=== PATIENT | female | born 2000 | race African-American/Black ===

== ENCOUNTER 2023-05-24 13:04 | Emergency (ER) | payer OTHER ==
[~2023-05-24] VITALS: Ht 165.1 cm; Wt 91.8 kg
[2023-05-24] MEDS ORDERED: HYDR-643 PO (13:14)
[2023-05-24] MEDS ORDERED: MELA3TAB30 PO (13:14)
[2023-05-24] MEDS ORDERED: ACET325C5 PO (13:14)
[2023-05-24 13:43] LABS: BASO # 0.1 10^3/uL (0.0-0.2); BASO % 0.6 % (0.0-1.0); EOS # 0.2 10^3/uL (0.0-0.5); EOS % 2.8 % (0.0-3.0); HEMATOCRIT 36.8 % (36.0-47.0); HEMOGLOBIN 12.3 g/dl (12.0-15.5); LYMPH # 3.9 10^3/uL (1.5-5.0); MEAN CORPUSCULAR HEMOGLOBIN 30.2 pg (27.0-33.0); MEAN CORPUSCULAR HGB CONC 33.4 g/dl (32.0-36.5); MEAN CORPUSCULAR VOLUME 90.4 fl (80.0-96.0); MONO # 0.6 10^3/uL (0.0-0.8); NEUTROPHILS # 3.7 10^3/uL (1.5-8.5); NEUTROPHILS % 43.5 % (36.0-66.0); PLATELET COUNT, AUTOMATED 378 10^3/uL (150-450); RED BLOOD COUNT 4.07 10^6/uL (4.00-5.40); WHITE BLOOD COUNT 8.4 10^3/uL (4.0-10.0)
[2023-05-24 14:12] LABS: LIPASE 31 U/L (12-53)
[2023-05-24 14:15] LABS: ALBUMIN 3.7 G/DL (3.2-5.2); ALKALINE PHOSPHATASE 51 U/L (46-116); ALT/SGPT 26 U/L (7.0-40); AST/SGOT 15 U/L (<34); BILIRUBIN,DIRECT < 0.1 MG/DL (<0.4); BILIRUBIN,TOTAL < 0.2 MG/DL (0.3-1.2); BLOOD UREA NITROGEN 7 MG/DL (9-23); CARBON DIOXIDE LEVEL 22 MMOL/L (20-31); CHLORIDE LEVEL 106 MMOL/L (98-107); CREATININE FOR GFR 0.53 MG/DL (0.55-1.30); GLOMERULAR FILTRATION RATE > 60.0 (>60); GLUCOSE, FASTING 102 MG/DL (60-100); SODIUM LEVEL 138 MMOL/L (136-145); TOTAL PROTEIN 7.4 G/DL (5.7-8.2)
[2023-05-24 14:22] LABS: HCG, SERUM QUALITATIVE NEGATIVE (NEGATIVE)
[2023-05-24] MEDS ORDERED: ACETAMINOPHEN 500 MG TAB PO ONE (17:30)
[2023-05-24 19:04] VITALS: BP 126/78; TEMP 98.3; O2SAT 100
== END 2023-05-24 19:05 | disposition home or self-care (01) ==
LOC: M ED 13:04
DX: R10.2 Pelvic and perineal pain (principal)

== ENCOUNTER 2023-11-22 03:15 | Inpatient (IN) | payer OTHER ==
[~2023-11-22] VITALS: Ht 167.6 cm; Wt 88.2 kg
[~2023-11-22 03:15] MED LIST: ACET325C5 PO; HYDR-643 PO; MELA3TAB30 PO
[2023-11-22 04:30] LABS: HEMATOCRIT 32.5 % (36.0-47.0); MEAN CORPUSCULAR HEMOGLOBIN 30.5 pg (27.0-33.0); MEAN CORPUSCULAR HGB CONC 33.8 g/dl (32.0-36.5); PLATELET COUNT, AUTOMATED 369 10^3/uL (150-450); RED BLOOD COUNT 3.61 10^6/uL (4.00-5.40); WHITE BLOOD COUNT 8.8 10^3/uL (4.0-10.0)
[2023-11-22 04:57] LABS: ETHYL ALCOHOL (ETHANOL) < 0.003 % (0.000-0.010)
[2023-11-22 04:59] LABS: ALBUMIN 3.7 G/DL (3.2-5.2); ALKALINE PHOSPHATASE 50 U/L (46-116); ALT/SGPT 57 U/L (7.0-40); AST/SGOT 13 U/L (<34); BILIRUBIN,DIRECT 0.1 MG/DL (<0.4); BILIRUBIN,TOTAL 0.5 MG/DL (0.3-1.2); BLOOD UREA NITROGEN 6 MG/DL (9-23); CALCIUM LEVEL 8.5 MG/DL (8.5-10.1); CARBON DIOXIDE LEVEL 23 MMOL/L (20-31); CHLORIDE LEVEL 106 MMOL/L (98-107); CREATININE FOR GFR 0.51 MG/DL (0.55-1.30); GLOMERULAR FILTRATION RATE > 60.0 (>60); GLUCOSE, FASTING 88 MG/DL (60-100); POTASSIUM SERUM 3.5 MMOL/L (3.5-5.1); SALICYLATE LEVEL < 3.0 MG/DL (<30); SODIUM LEVEL 138 MMOL/L (136-145); TOTAL PROTEIN 6.6 G/DL (5.7-8.2)
[2023-11-22 05:06] LABS: THYROID STIMULATING HORMONE 0.776 uIU/ML (0.55-4.78)
[2023-11-22 05:15] LABS: HCG, SERUM QUALITATIVE NEGATIVE (NEGATIVE)
[2023-11-22 05:51] LABS: AMPHETAMINES LEVEL URINE NEGATIVE (NEGATIVE); BARBITURATES URINE NEGATIVE (NEGATIVE); BENZODIAZEPINES URINE NEGATIVE (NEGATIVE); CANNABINOIDS URINE NEGATIVE (NEGATIVE); COCAINE METABOLITE URINE NEGATIVE (NEGATIVE); METHADONE URINE NEGATIVE (NEGATIVE); OPIATES URINE NEGATIVE (NEGATIVE); PHENCYCLIDINE URINE NEGATIVE (NEGATIVE)
[2023-11-22] MEDS: ACETAMINOPHEN TAB 650MG DOSE (2X325MG) PO ONE (06:25)
[2023-11-22] MEDS ORDERED: HOME MED LIST COMPLETE! XX SCH (07:55)
[2023-11-22] MEDS ORDERED: MAALOX 30 ML SUSP *UDC PO PRN (13:10)
[2023-11-22 18:05] VITALS: BP 157/72; TEMP 97.9; O2SAT 97
[2023-11-22] MEDS: ACETAMINOPHEN TAB 650MG DOSE (2X325MG) PO PRN (19:39)
[2023-11-22] MEDS: traZODone 50 MG TAB PO PRN (22:27)
[2023-11-23 07:12] VITALS: BP 123/70; TEMP 97.3; O2SAT 100
[2023-11-23] MEDS: IBUPROFEN 400MG TAB PO PRN (08:33)
[2023-11-23] MEDS: CYCLOBENZAPRINE 5MG TABLET PO PRN (15:01)
[2023-11-23] MEDS: LIDOCAINE 5% (LIDODERM) PATCH TD ONE (15:01)
[2023-11-23 15:51] VITALS: BP 126/79; TEMP 97.2; O2SAT 99
[2023-11-23] MEDS: diphenhydrAMINE 25MG CAP PO PRN (21:23)
[2023-11-23] MEDS: MELOXICAM (MOBIC) 7.5 MG TAB PO SCH (21:23)
[2023-11-24 06:52] VITALS: BP 126/67; TEMP 97.8; O2SAT 99
[2023-11-24] MEDS: MOM 30ML SUSPENSION UDC PO PRN (10:46)
[2023-11-24 16:21] VITALS: BP 131/72; TEMP 97.4; O2SAT 99
[2023-11-25 06:19] VITALS: BP 108/74; TEMP 98; O2SAT 99
[2023-11-25 16:34] VITALS: BP 135/76; TEMP 98.6; O2SAT 100
[2023-11-26 06:42] VITALS: BP 123/86; TEMP 97.6; O2SAT 100
[2023-11-26] MEDS ORDERED: TRAZ-252 PO (10:42)
[2023-11-26] MEDS ORDERED: DIPH-435 PO (10:42)
== END 2023-11-26 13:07 | disposition home or self-care (01) | DRG 880 ==
LOC: M ED 03:15 → M ED INP 13:08 → M PSY 16:13
PROVIDERS: ADMIT Student in an Organized Health Care Education/Training Program; ATTEND Student in an Organized Health Care Education/Training Program
DX: F41.9 Anxiety disorder, unspecified (principal); R45.851 Suicidal ideations; F43.21 Adjustment disorder with depressed mood; F17.290 Nicotine dependence, other tobacco product, uncomplicated; M54.50 Low back pain, unspecified; Z81.8 Family history of other mental and behavioral disorders; Z63.0 Problems in relationship with spouse or partner; F10.10 Alcohol abuse, uncomplicated; F60.89 Other specific personality disorders

== ENCOUNTER → 2023-12-03 | Outpatient (REF) ==
[~2023-12-03] MED LIST changes: +DIPH-435 PO; +TRAZ-252 PO
== END ==
LOC: M PLAIMG 11:19
PROVIDERS: ATTEND Internal Medicine
DX: M54.50 Low back pain, unspecified (principal); R07.9 Chest pain, unspecified